=== PATIENT | male | born 1965 | race Caucasian/White ===

== ENCOUNTER 2021-12-31 18:18 | Outpatient (REF) | payer MEDICARE, MEDICAID, SELFPAY ==
[2021-12-31 20:13] LABS: Abs Immature Grans 0.04 10^3/uL (0.0-0.06); Absolute Basophil Count 0.02 10^3/uL (0.0-0.2); Absolute Eosinophil Count 0.01 10^3/uL (0.0-0.7); Absolute Lymphocyte Count 2.05 10^3/uL (1.2-3.4); Absolute Monocyte Count 0.58 10^3/uL (0.1-0.8); Absolute Neutrophil Count 5.47 10^3/uL (1.2-6.7); Basophils % 0.2; Eosinophils % 0.1; HCT 40.3 % (40.0-50.0); HGB 13.9 g/dL (13.5-17.5); Immature Grans % 0.5; Lymphocytes % 25.1; MCH 31.5 pg (27.0-33.0); MCHC 34.5 % (32.0-36.0); MCV 91 fL (80-95); MPV 9.1 fL (8.0-11.0); Monocytes % 7.1; Platelet Count 367 10^3/uL (130-400); RBC 4.41 10^6/uL (4.36-5.78); RDW 11.9 % (11.8-14.1); WBC 8.17 10^3/uL (4.4-10.8)
[2021-12-31 20:23] LABS: ALT 19 U/L (16-63); AST 24 U/L (15-37); Albumin 3.9 g/dL (3.4-5.0); Alkaline Phosphatase 66 U/L (46-116); Anion Gap 9.8 mmol/L (3-11); BUN 10 mg/dL (7-18); Bilirubin, Total 0.4 mg/dL (0.2-1.0); CO2 25.2 mmol/L (21.0-32.0); Calcium 9.1 mg/dL (8.5-10.1); Calculated LDL 97 mg/dL (<100); Chloride 105 mmol/L (98-107); Cholesterol 176 mg/dL (<200); Estimated GFR 88.33 (mL/min/1.73m2); Glucose 106 mg/dL (74-106); HDL Cholesterol 46 mg/dL (40-60); Magnesium 1.8 mg/dL (1.8-2.4); Potassium 3.8 mmol/L (3.5-5.1); Sodium 140 mmol/L (136-145); Total Protein 7.5 g/dL (6.4-8.2); Triglyceride 165 mg/dL (<150)
[2021-12-31 20:36] LABS: Hemoglobin A1C 5.5 % (<5.7)
== END 2021-12-31 18:19 | disposition home or self-care (01) ==
LOC: NCHCN 18:18
PROVIDERS: PCP Family Medicine; Visit Provider Nurse Practitioner Family
DX: E78.5 Hyperlipidemia, unspecified (principal); F31.9 Bipolar disorder, unspecified; F25.9 Schizoaffective disorder, unspecified
CPT/HCPCS: 80053; 80061; 83036; 83735; 85025

== ENCOUNTER 2022-07-26 13:20 | Outpatient (REF) | payer MEDICARE, MEDICAID, SELFPAY ==
[2022-07-26 15:09] LABS: Hemoglobin A1C 5.3 % (<5.7)
[2022-07-26 15:13] LABS: ALT 31 U/L (16-63); AST 20 U/L (15-37); Albumin 3.8 g/dL (3.4-5.0); Alkaline Phosphatase 64 U/L (46-116); Anion Gap 10.9 mmol/L (3-11); BUN 12 mg/dL (7-18); Bilirubin, Total 0.4 mg/dL (0.2-1.0); CO2 25.1 mmol/L (21.0-32.0); Calculated LDL 119 mg/dL (<100); Chloride 104 mmol/L (98-107); Cholesterol 197 mg/dL (<200); Estimated GFR 87.78 (mL/min/1.73m2); Glucose 119 mg/dL (74-106); HDL Cholesterol 51 mg/dL (40-60); Potassium 3.8 mmol/L (3.5-5.1); Sodium 140 mmol/L (136-145); TSH 2.51 uIU/mL (0.36-3.74); Total Protein 7.1 g/dL (6.4-8.2); Triglyceride 138 mg/dL (<150)
== END 2022-07-26 13:21 | disposition home or self-care (01) ==
LOC: NCHCN 13:20
PROVIDERS: PCP Family Medicine; Visit Provider Registered Nurse
DX: Z51.81 Encounter for therapeutic drug level monitoring (principal)
CPT/HCPCS: 80053; 80061; 83036; 84443